=== PATIENT | female | born 1995 | race Caucasian/White ===

== ENCOUNTER → 2024-03-08 | Day surgery (SDC) | payer OTHER ==
[~2024-03-08] MED LIST: ACETAMINOPHEN 1000 MG/100 ML 100 ML IV ONE; B12 ACTIVE1000 MCG; BUPIVACAINE HCL 0.5% INJ 30 ML VIAL INJ ONE; D3-5000125 MCG; ESTROGENS CONJUGATED VAGINAL CR 45 GM TUBE PV ONE; FISH OIL 1,0001 EAC7; WEGOVY1.7 MG/0.7
[2024-03-08] MEDS: LACTATED RINGER'S 1,000 ML ONE (11:42)
[2024-03-08 13:10] VITALS: TEMP 97.5
[2024-03-08 14:10] VITALS: BP 125/74; PULSE 82; RESP 13; O2SAT 99
== END | disposition home or self-care (01) ==
LOC: OR 10:57
PROVIDERS: ATTEND Specialist
DX: T83.32XA Displacement of intrauterine contraceptive device, initial encounter (principal); N93.9 Abnormal uterine and vaginal bleeding, unspecified; K58.9 Irritable bowel syndrome, unspecified; F41.9 Anxiety disorder, unspecified; F32.A Depression, unspecified; Y83.8 Other surgical procedures as the cause of abnormal reaction of the patient, or of later complication, without mention of misadventure at the time of the procedure; Z79.85 Long-term (current) use of injectable non-insulin antidiabetic drugs
CPT/HCPCS: 58562; 81025; J0131; J7121